=== PATIENT | male | born 1970 | race Hispanic/Latino ===

== ENCOUNTER → 2018-10-01 | Outpatient (CLI) | payer BC ==
--- NOTE | 2018-10-01 14:16 | Diagnostic Imaging Report ---
Exam: Bilateral hands 3 views pain in left hand, on middle finger. History: Pain in left hand, bump on left middle finger Comparison: None. Findings: No acute, displaced fracture or dislocation. Left third distal interphalangeal joint space narrowing, asymmetrically towards the radial margin of the joint. Overlying soft tissue swelling. Remaining joint spaces are well-maintained. Soft tissues unremarkable. 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 In the absence of prior trauma, consider MRI of the left hand for further evaluation of synovial or tendinous process. Signed by: Dr. Epi Salinas M.D. on 10/01/2018 2:13 PM
== END ==
LOC: RAD 12:16
PROVIDERS: ATTEND Internal Medicine
DX: M19.042 Primary osteoarthritis, left hand (principal); M19.041 Primary osteoarthritis, right hand